=== PATIENT | female | born 1965 ===

== ENCOUNTER 2018-08-21 10:42 | Emergency (ER) | payer OTHER ==
[2018-08-21 10:52] VITALS: BMI 25.7
[2018-08-21 11:32] LABS: HCG,QUALITATIVE URINE NEGATIVE (NEGATIVE)
[2018-08-21 11:37] LABS: SQUAMOUS EPITHIAL 1 /hpf (0-5); URINE BILIRUBIN NEGATIVE (NEGATIVE); URINE BLOOD NEGATIVE (NEGATIVE); URINE CLARITY Clear (Clear); URINE COLOR Straw (YELLOW); URINE GLUCOSE (UA) NORMAL (Normal); URINE LEUKOCYTE ESTERASE 1+ Leu/uL (Negative); URINE PROTEIN NEGATIVE (NEGATIVE); URINE UROBILINOGEN NORMAL mg/dL (0.2-1.0)
[2018-08-21] MEDS ORDERED: Sodium Chloride 0.9% 1,000 ML IV ONE (11:55)
[2018-08-21] MEDS ORDERED: Morphine 4 MG/ML VIAL ONE ×2 (12:12→13:51)
[2018-08-21] MEDS ORDERED: Sodium Chloride 0.9% 1,000 ML ONE (12:12)
[2018-08-21 12:17] LABS: BASO # 0.1 K/uL (0.0-0.2); BASO % 0.6 % (0.0-2.0); EOS # 0.2 K/uL (0.0-0.7); EOS % 1.6 % (0.0-4.0); HEMOGLOBIN 13.7 g/dL (11.0-16.0); LYMPH # 2.6 K/uL (1.0-4.3); LYMPH % 23.6 % (20.0-40.0); MEAN CELL VOLUME 89.3 fL (81.0-99.0); MEAN CORPUSCULAR HEMOGLOBIN 30.4 pg (27.0-31.0); MEAN CORPUSCULAR HGB CONC 34.1 g/dL (33.0-37.0); MONO # 0.7 K/uL (0.0-0.8); MONO % 6.5 % (0.0-10.0); NEUT # 7.5 K/uL (1.8-7.0); NEUT % 67.7 % (50.0-75.0); RBC 4.51 Mil/uL (3.80-5.20); RED CELL DISTRIBUTION WIDTH 12.8 % (11.5-14.5); WHITE BLOOD COUNT 11.1 K/uL (4.8-10.8)
[2018-08-21 12:33] LABS: ALB/GLOB RATIO 1.2 (1.0-2.1); ALBUMIN 4.3 g/dL (3.5-5.0); ALT/SGPT 28 U/L (9-52); AST/SGOT 23 U/L (14-36); BLOOD UREA NITROGEN 13 mg/dL (7-17); CALCIUM 9.7 mg/dl (8.6-10.4); GFR NON-AFRICAN AMERICAN > 60; LIPASE 130 U/L (23-300)
[2018-08-21 13:44] VITALS: RESP 18
--- NOTE | 2018-08-21 13:54 | US ---
Right upper quadrant abdominal ultrasound HISTORY: Right upper quadrant abdominal pain. COMPARISON: None available. Technique: Real-time sonography was performed through the right upper quadrant of the abdomen. FINDINGS: Liver: 15.5 centimeters in length. Normal echogenicity. Gallbladder: No calculi or sludge. Normal wall thickness of 1.7 millimeters. Negative sonographic Pittman's sign. Common bile duct measures 4.5 millimeters, within normal limits. Limited visualization of the pancreas. Pancreatic duct measures up to 1.8 millimeters. Visualized aorta and IVC are grossly preserved. Right kidney: 10.1 x 4.4 x 4.9 centimeters. No calculi or hydronephrosis Impression: Unremarkable sonographic evaluation of the right upper quadrant of the abdomen. Limited visualization of the pancreas.
--- NOTE | 2018-08-21 14:06 | C.PDOC ---
History Of Present Illness 53 year old female presents to ED for evaluation of persistent RUQ abdominal pain described as sharp and burning since waking up this morning. Notes that pain is constant in nature and occasionally radiates to the back. Pain is not a ssociated with food intake. Denies prior history of similar episode. Otherwise, denies n/v/d, dysuria, hematuria, vaginal bleeding, vaginal discharge, or fever. Time Seen by Provider: 08/21/18 10:44 Chief Complaint (Nursing): Abdominal Pain History Per: Patient History/Exam Limitations: no limitations Onset/Duration Of Symptoms: Hrs, Persistent Current Symptoms Are (Timing): Still Present Location Of Pain/Discomfort: RUQ Radiation Of Pain To:: Back Quality Of Discomfort: Sharp, Burning Associated Symptoms: denies: Fever, Chills, Nausea, Vomiting, Diarrhea, Loss Of Appetite, Urinary Symptoms Exacerbating Factors: None Alleviating Factors: None Additional History Per: Patient Abnormal Vaginal Bleeding: No Past Medical History Reviewed: Historical Data, Nursing Documentation, Vital Signs Vital Signs: Last Vital Signs Temp 98.5 F 08/21/18 13:43 Pulse 73 08/21/18 13:43 Resp 18 08/21/18 13:43 BP 135/82 08/21/18 13:43 Pulse Ox 99 08/21/18 13:43 Surgical History: Appendectomy Family History: States: Unknown Family Hx - Social History Hx Alcohol Use: No Hx Substance Use: Yes - Immunization History Hx Tetanus Toxoid Vaccination: No Hx Influenza Vaccination: No Hx Pneumococcal Vaccination: No Review Of Systems Except As Marked, All Systems Reviewed And Found Negative. Constitutional: Negative for: Fever, Chills Cardiovascular: Negative for: Chest Pain Respiratory: Negative for: Shortness of Breath Gastrointestinal: Positive for: Abdominal Pain. Negative for: Nausea, Vomiting, Diarrhea, Constipation Genitourinary: Negative for: Dysuria, Frequency, Hematuria, Vaginal Discharge, Vaginal Bleeding Musculoskeletal: Positive for: Back Pain Physical Exam - Physical Exam Appears: Non-toxic, Other (In moderate pain) Skin: Normal Color, Warm, Dry Head: Normacephalic Eye(s): bilateral: Normal Inspection Oral Mucosa: Moist Neck: Normal ROM, Supple Cardiovascular: Rhythm Regular, No Murmur Respiratory: Normal Breath Sounds, No Rales, No Rhonchi, No Wheezing Gastrointestinal/Abdominal: Soft, Tenderness (epigastric, (+)Pittman's sign), No Guarding, No Rebound, No Other ((-)McBurney's) Back: No CVA Tenderness Extremity: Normal ROM Neurological/Psych: Oriented x3, Normal Speech ED Course And Treatment - Laboratory Results Result Diagrams: 08/21/18 12:12 08/21/18 12:12 O2 Sat by Pulse Oximetry: 99 (RA) Pulse Ox Interpretation: Normal - CT Scan/US Abdomen US Other Rad Studies (CT/US): Read By Radiologist, Radiology Report Reviewed CT/US Interpretation: Accession No. : [id number]. Patient Name / ID : SORAIDA JAMES / [id number]. Exam Date : 08/21/2018 12:47:56 ( Approved ). Study Comment : Sex / Age : F / 53Y. Creator : Jac Winston MD. Dictator : Jac Winston MD. Newspaper Editor : Toaster Operator : Jac Winston MD. Approver2 : Report Date : 08/21/2018 13:50:58. My Comment : . Right upper quadrant abdominal ultrasound. HISTORY: Right upper quadrant abdominal pain. COMPARISON: None available. Technique: Real-time sonography was performed through the right upper quadrant of the abdomen. FINDINGS: Liver: 15.5 centimeters in length. Normal echogenicity. Gallbladder: No calculi or sludge. Normal wall thickness of 1.7 millimeters. Negative sonographic Pittman's sign. Common bile duct measures 4.5 millimeters, within normal limits. Limited visualization of the pancreas. Pancreatic duct measures up to 1.8 millimeters. Visualized aorta and IVC are grossly preserved. Right kidney: 10.1 x 4.4 x 4.9 centimeters. No calculi or hydronephrosis. Impression: Unremarkable sonographic evaluation of the right upper quadrant of the abdomen. Limited visualization of the pancreas. Abd & Pelvis CT Other Rad Studies (CT/US): Read By Radiologist, Radiology Report Reviewed CT/US Interpretation: Accession No. : [id number]. Patient Name / ID : SORAIDA JAMES / [id number]. Exam Date : 08/21/2018 15:03:00 ( Approved ). Study Comment : Sex / Age : F / 53Y. Creator : Jac Winston MD. Dictator : Jac Winston MD. Newspaper Editor : Toaster Operator : Jac Winston MD. Approver2 : Report Date : 08/21/2018 15:52:49. My Comment : . CT abdomen and pelvis. History: Right-sided abdominal pain. COMPARISON: None available. TECHNIQUE: Multiple contiguous axial images were performed through the abdomen and pelvis without the use of intravenous contrast. Subsequently, sagittal and coronal reformatted images were obtained. Findings: Mild atelectasis at the bases. No pleural or pericardial effusion. Liver and gallbladder are preserved. Spleen is preserved. Adrenal glands are preserved. Pancreas is preserved. Upper abdominal bowel is preserved. Right kidney: No calculi or hydronephrosis. Left Kidney: No calculi or hydronephrosis. Mildly distended urinary bladder. Heterogeneous uterus and bilateral adnexa. Suggestion of a right adnexal calcification and/or calcified phlebolith measuring 6.6 millimeters. Left adnexal calcification and/or calcified phlebolith measuring 4 millimeters. Fecal retention in the colon. Few scattered diverticuli. Few shotty mesenteric lymph nodes in the right lower quadrant of the abdomen. Appendix not well visualized on this noncontrast study. Few shotty para-aortic and mesenteric lymph nodes. Degenerative changes in the spine. Impression: Negative acute abdomen and pelvis. No renal calculi. Appendix not well visualized. If there is concern for acute appendicitis, correlation with contrast-enhanced CT may be helpful. Prominence of the uterus and bilateral adnexa with bilateral adnexal calcifications and or calcified phleboliths. Progress Note: Urinalysis, Blood work, Abd & Pelvis CT scan, Abdomen ultrasound was ordered and reviewed. Pt was given Morphine and IV fluids. On re-eval, pt is resting comfortably, reports improvement of pain. 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 Disposition - Disposition Referrals: [facility] [Outside] Dante Gomes MD [Staff Provider] - Disposition: HOME/ ROUTINE Disposition Time: 16:45 Condition: STABLE Additional Instructions: FOLLOW UP WITH DADO OPERATOR WITHIN 1 WEEK USE MEDICATION EVERY DAY AVOID SPICY OR ACIDIC FOODS RETURN TO EMERGENCY ROOM IF SYMPTOMS WORSEN SEGUIRSE CON EL GASTROENTERLOGO DENTRO DE 1 SEMANA UTILIZAR MEDICAMENTOS TODOS LOS MAY Evitar los alimentos especiados o cidos. VUELVA A LA MICHELLE DE EMERGENCIA SI LOS SNTOMAS SE HACEN PEOR Prescriptions: Pantoprazole [Protonix EC Tab] 20 mg PO DAILY #30 ect Instructions: Acute Abdomen (Belly Pain), Adult (DC) Forms: [employer] (Yakut) Print Language: SOUTH KOREAN - Clinical Impression Clinical Impression: Upper abdominal pain, Epigastric abdominal pain - Scribe Statement The provider has reviewed the documentation as recorded by the Scribe KP All medical record entries made by the Scribe were at my direction and personally dictated by me. I have reviewed the chart and agree that the record accurately reflects my personal performance of the history, physical exam, medical decision making, and the department course for this patient. I have also personally directed, reviewed, and agree with the discharge instructions and disposition.
--- NOTE | 2018-08-21 15:56 | CT ---
CT abdomen and pelvis History: Right-sided abdominal pain. COMPARISON: None available. TECHNIQUE: Multiple contiguous axial images were performed through the abdomen and pelvis without the use of intravenous contrast. Subsequently, sagittal and coronal reformatted images were obtained. Findings: Mild atelectasis at the bases. No pleural or pericardial effusion. Liver and gallbladder are preserved. Spleen is preserved. Adrenal glands are preserved. Pancreas is preserved. Upper abdominal bowel is preserved. Right kidney: No calculi or hydronephrosis. Left Kidney: No calculi or hydronephrosis. Mildly distended urinary bladder. Heterogeneous uterus and bilateral adnexa. Suggestion of a right adnexal calcification and/or calcified phlebolith measuring 6.6 millimeters. Left adnexal calcification and/or calcified phlebolith measuring 4 millimeters. Fecal retention in the colon. Few scattered diverticuli. Few shotty mesenteric lymph nodes in the right lower quadrant of the abdomen. Appendix not well visualized on this noncontrast study. Few shotty para-aortic and mesenteric lymph nodes. Degenerative changes in the spine. Impression: Negative acute abdomen and pelvis. No renal calculi. Appendix not well visualized. If there is concern for acute appendicitis, correlation with contrast-enhanced CT may be helpful. Prominence of the uterus and bilateral adnexa with bilateral adnexal calcifications and or calcified phleboliths.
[2018-08-21] MEDS ORDERED: Pantoprazole 40 mg EC Tab PO STA (16:32)
[2018-08-21] MEDS ORDERED: Pantoprazole 40 mg EC Tab PO ONE (16:38)
[2018-08-21 16:45] VITALS: BP 104/78; PULSE 73; TEMP 97.8
[2018-08-21 17:15] VITALS: O2SAT 99
== END 2018-08-21 16:45 | disposition home or self-care (01) ==
LOC: C.ER 10:42
DX: R10.13 Epigastric pain (principal)
CPT/HCPCS: 74176; 76705; 80053; 81001; 83690; 84703; 85025; 96361; 96374; 96376; 99285; J2270; J7030

== ENCOUNTER 2018-08-23 07:03 | Emergency (ER) | payer OTHER ==
[2018-08-23 07:03] VITALS: BMI 25.7
[2018-08-23 07:13] VITALS: RESP 18; TEMP 97.9; O2SAT 98
[2018-08-23] MEDS ORDERED: Sodium Chloride 0.9% 1,000 ML IV ONE (07:36)
--- NOTE | 2018-08-23 07:36 | C.PDOC ---
History Of Present Illness 53 y/o female presents to ED with c/o worsening upper abdominal pain radiating to back for 3 days. Patient was seen in ED 3 days ago and had bloodwork, US, CT scan abdomen then discharged with medications. Patient states she has been taking medication as instructed with no improvement. Patient reports last bowel movement 3 days ago and denies fever, chills, vomiting, diarrhea, dysuria, hematuria or any other complaints at this time. Time Seen by Provider: 08/23/18 07:29 Chief Complaint (Nursing): Abdominal Pain History Per: Patient History/Exam Limitations: no limitations Onset/Duration Of Symptoms: Days Current Symptoms Are (Timing): Still Present Location Of Pain/Discomfort: Diffuse, RUQ Past Medical History Reviewed: Historical Data, Nursing Documentation, Vital Signs Vital Signs: Last Vital Signs Temp 97.9 F 08/23/18 07:10 Pulse 92 H 08/23/18 07:10 Resp 18 08/23/18 07:10 BP 154/90 H 08/23/18 07:10 Pulse Ox 98 08/23/18 07:10 - Medical History PMH: No Chronic Diseases Surgical History: Appendectomy Family History: States: No Known Family Hx - Social History Hx Alcohol Use: No Hx Substance Use: No - Immunization History Hx Tetanus Toxoid Vaccination: No Hx Influenza Vaccination: No Hx Pneumococcal Vaccination: No Review Of Systems Constitutional: Negative for: Fever, Chills Gastrointestinal: Positive for: Abdominal Pain. Negative for: Nausea, Vomiting, Diarrhea Genitourinary: Negative for: Dysuria, Hematuria Skin: Negative for: Rash Physical Exam - Physical Exam Appears: Non-toxic, No Acute Distress Skin: Warm, Dry, No Rash Head: Atraumatic, Normacephalic Eye(s): bilateral: Normal Inspection Oral Mucosa: Moist Neck: Normal ROM, Supple Cardiovascular: Rhythm Regular Respiratory: Normal Breath Sounds, No Rales, No Rhonchi, No Wheezing Gastrointestinal/Abdominal: Bowel Sounds, Soft, Tenderness (generalized worse on RUQ), No Mass, No Distention, No Guarding, No Rebound, No Hernia, No Ascites Back: No CVA Tenderness Extremity: Bilateral: Atraumatic, Normal ROM Neurological/Psych: Oriented x3, Normal Speech ED Course And Treatment - Laboratory Results Result Diagrams: 08/23/18 07:48 08/23/18 07:48 O2 Sat by Pulse Oximetry: 98 (RA) Pulse Ox Interpretation: Normal Medical Decision Making Medical Decision Making: Impression: upper abdominal pain Plan: * Blood work * Abdomen US * IV fluids * Toradol * Pepcid Prior records reviewed patient had been seen in ED 08/21/18 for similar pain had complete workup including labs, abdominal US and CT with no acute findings for presentation. Patient was treated with fluids and Morphine and discharged with Protonix and instructed to follow up with GI. Progress: 8:12 Labs reviewed and unremarkable, no acute change from 2 days prior. No leukocytosis, shift, bands, or electrolyte abnormality. 8:21 UA shows WBCs, blood and LE which was not present on prior result. 9:08 Patient re-evaluated resting comfortably on stretcher and reports pain improved. She has no urinary symptoms. Discussed results with patient and explain no further workup in th ED. Advise patient to follow up in the clinic and with GI. Recommend diet and avoid NSAIDs for pain. Disposition Counseled Patient/Family Regarding: Diagnosis, Need For Followup, Rx Given - Disposition Disposition: HOME/ ROUTINE Disposition Time: 09:10 Condition: GOOD Additional Instructions: Tus laboratorios kavita normales. TC y ultrasonido desde hace 2 yepez normal. Evite sunitha cualquier medicamento antiinflamatorio zuleika Advil, aspirina o Aleve que pueda irritar el estmago. Evitar la cafena. Sunitha medicamentos prescritos a usted. Ve a beth la clnica y GI. Regrese al departamento de emergencias en cualquier momento si los sntomas persisten o empeoran. Prescriptions: traMADol [Ultram] 50 mg PO Q8 PRN #15 tab PRN Reason: Pain, Severe (8-10) Instructions: Acute Abdomen (Belly Pain), Adult (DC), Ulcer and Gastritis Diet Forms: Accompanied To ED By:, Work Excuse Print Language: VENEZUELAN - POA Present On Arrival: None - Clinical Impression Clinical Impression: Upper abdominal pain - PA / HELMET COVERER / Resident Statement MD/DO has reviewed & agrees with the documentation as recorded. - Scribe Statement The provider has reviewed the documentation as recorded by the Charuibhaleigh Mcdonnell All medical record entries made by the Charuibhaleigh were at my direction and personally dictated by me. I have reviewed the chart and agree that the record accurately reflects my personal performance of the history, physical exam, medical decision making, and the department course for this patient. I have also personally directed, reviewed, and agree with the discharge instructions and disposition.
[2018-08-23] MEDS ORDERED: Sodium Chloride 0.9% 1,000 ML ONE (07:50)
[2018-08-23 07:54] LABS: BASO % 0.5 % (0.0-2.0); EOS # 0.1 K/uL (0.0-0.7); EOS % 0.5 % (0.0-4.0); HEMOGLOBIN 12.9 g/dL (11.0-16.0); LYMPH # 2.1 K/uL (1.0-4.3); LYMPH % 19.3 % (20.0-40.0); MEAN CELL VOLUME 88.7 fL (81.0-99.0); MEAN CORPUSCULAR HEMOGLOBIN 31.1 pg (27.0-31.0); MEAN PLATELET VOLUME 8.1 fL (7.2-11.7); MONO # 0.9 K/uL (0.0-0.8); NEUT # 7.8 K/uL (1.8-7.0); NEUT % 71.7 % (50.0-75.0); RBC 4.14 Mil/uL (3.80-5.20); RED CELL DISTRIBUTION WIDTH 12.6 % (11.5-14.5); WHITE BLOOD COUNT 10.8 K/uL (4.8-10.8)
[2018-08-23 08:09] LABS: ALB/GLOB RATIO 1.1 (1.0-2.1); ALT/SGPT 30 U/L (9-52); AMYLASE 75 U/L (30-110); AST/SGOT 24 U/L (14-36); BLOOD UREA NITROGEN 10 mg/dL (7-17); GFR NON-AFRICAN AMERICAN > 60; LIPASE 73 U/L (23-300)
[2018-08-23 08:10] LABS: SQUAMOUS EPITHIAL 2 /hpf (0-5); URINE BACTERIA RARE (<OCC); URINE BILIRUBIN NEGATIVE (NEGATIVE); URINE BLOOD 2+ (NEGATIVE); URINE CLARITY Clear (Clear); URINE COLOR Yellow (YELLOW); URINE GLUCOSE (UA) NORMAL (Normal); URINE LEUKOCYTE ESTERASE 3+ Leu/uL (Negative); URINE PROTEIN NEGATIVE (NEGATIVE); URINE UROBILINOGEN NORMAL mg/dL (0.2-1.0)
[2018-08-23 09:26] VITALS: BP 147/77; PULSE 67
== END 2018-08-23 09:26 | disposition home or self-care (01) ==
LOC: C.ER 07:03
DX: R10.11 Right upper quadrant pain (principal)
CPT/HCPCS: 80053; 81001; 82150; 83690; 85025; 96361; 96374; 96375; 99284; J1885; J7030

== ENCOUNTER 2019-02-20 11:45 | Outpatient (CLI) | payer OTHER | END 2019-02-20 11:46 | disposition home or self-care (01) | LOC: C.MAMMO 11:45 | DX: Z12.39 Encounter for other screening for malignant neoplasm of breast (principal) ==